=== PATIENT | male | born 1995 | race Caucasian/White ===

== ENCOUNTER 2019-02-25 04:59 | Emergency (ER) | payer BC ==
[~2019-02-25] VITALS: Ht 177.8 cm; Wt 68.0 kg
[2019-02-25 05:30] VITALS: BP 129/68
== END 2019-02-25 06:07 | disposition left against medical advice (07) ==
LOC: ER 04:59
DX: Z53.21 Procedure and treatment not carried out due to patient leaving prior to being seen by health care provider (principal)